=== PATIENT | male | born 1995 | race Two or more races ===

== ENCOUNTER 2019-01-01 09:46 | Emergency (ER) | payer SELFPAY ==
[2019-01-01 09:50] VITALS: BP 117/75
[2019-01-01] MEDS ORDERED: DEXAMETHASONE 4 MG TABLET PO ONE (10:39)
[2019-01-01] MEDS ORDERED: DIPHENHYDRAMINE HCL 25 MG CAPSULE PO ONE (10:39)
--- NOTE | 2019-01-01 10:39 | ER Document Report ---
HPI - HPI Time Seen by Provider: 01/01/19 10:11 Pain Level: 4 Context: Patient is a 23-year-old male presents to the emergency department with a chief complaint of right hand swelling. Patient states he woke up last night around midnight with itching to the right dorsal aspect of his hand. Patient states he did apply an hoin-qib-kxoxypf anti-itch medication which did seem to help. Patient states he woke up this morning with swelling to his hand and a white spot noted to the proximal aspect of the middle finger. Patient states he has had itching. Patient denies redness or drainage. Patient states he is unsure if he got bit by something but he did sleep with his window open last night. - CONSTITUTIONAL Constitutional: DENIES: Fever, Chills - MUSCULOSKELETAL Musculoskeletal: REPORTS: Extremity pain - R hand Past Medical History - General Information source: Patient - Social History Smoking Status: Current Every Day Smoker Frequency of alcohol use: None Drug Abuse: Marijuana Lives with: Family Family History: None Patient has suicidal ideation: No Patient has homicidal ideation: No - Past Medical History Cardiac Medical History: Reports: None Pulmonary Medical History: Reports: None EENT Medical History: Reports: None Neurological Medical History: Reports: None Endocrine Medical History: Reports: None Renal/ Medical History: Reports: None. Denies: Hx Peritoneal Dialysis Malignancy Medical History: Reports None GI Medical History: Reports: None Musculoskeletal Medical History: Reports None Skin Medical History: Reports None Psychiatric Medical History: Reports: None Traumatic Medical History: Reports: None Infectious Medical History: Reports: None Past Surgical History: Reports: None Vertical Provider Document - CONSTITUTIONAL Agree With Documented VS: Yes Exam Limitations: No Limitations General Appearance: No Apparent Distress - INFECTION CONTROL TRAVEL OUTSIDE OF THE [place] IN LAST 30 DAYS: No - HEENT HEENT: Atraumatic, Normal ENT Exam, Normocephalic, PERRLA - RESPIRATORY Respiratory: Breath Sounds Normal, No Respiratory Distress - CARDIOVASCULAR Cardiovascular: Regular Rate, Regular Rhythm - GI/ABDOMEN Gastrointestinal: Abdomen Soft, Abdomen Non-Tender, Normal Bowel Sounds - MUSCULOSKELETAL/EXTREMETIES Notes: Patient has soft tissue edema noted to the dorsal aspect of the right hand. There is a white raised pustule noted to the proximal aspect of the right middle finger. There is no erythema, drainage, ecchymosis. Patient is able to make a fist, okay sign and has flexion extension to all fingers. - NEURO Level of Consciousness: Awake, Alert, Appropriate - DERM Integumentary: Warm, Dry, No Rash Course - Re-evaluation Re-evalutation: 01/01/19 10:37 Upon initial assessment patient is resting comfortably and in no acute distress. Patient does have soft tissue swelling noted to the dorsal aspect of the right hand. Due to the raised right pustule does appear patient was stung or bit by something. At this time patient does not require an incision and drainage as there is no abscess, does not require an antibiotic. I did discuss with the mother and patient to continue to use the hydrocortisone cream for itching, elevate and use cool compresses to help with swelling and to monitor for worsening signs or symptoms. - Vital Signs Vital signs: Temp Pulse Resp BP Pulse Ox 97.7 F 57 L 20 117/75 100 01/01/19 09:49 01/01/19 09:49 01/01/19 09:49 01/01/19 09:49 01/01/19 09:49 Discharge - Discharge Clinical Impression: Swelling of right hand Condition: Stable Disposition: HOME, SELF-CARE Additional Instructions: Today you were seen in the emergency department for right hand swelling. It does appear you may have gotten stung or bit by something throughout the night. Please continue use the [id number] hydrocortisone cream to help with the itching. You may also use a Benadryl. Please be aware Benadryl can make you groggy and sleepy. Please monitor for signs and symptoms of infection to include drainage from the hand, redness, worsening swelling, or any concerning signs or symptoms. Please take Tylenol or ibuprofen as needed for pain. Forms: Return to Work
== END 2019-01-01 10:45 | disposition home or self-care (01) ==
LOC: ER 09:46
DX: M79.89 Other specified soft tissue disorders (principal); M79.641 Pain in right hand; F17.200 Nicotine dependence, unspecified, uncomplicated
CPT/HCPCS: 99283